=== PATIENT | male | born 1950 | race Asian ===

== ENCOUNTER → 2020-12-09 | Outpatient (CLI) | payer OTHER ==
[~2020-12-09] MED LIST: ATEN50TA PO; FURO20TA3 PO; NADO20TA2 PO
== END ==
LOC: LAB 09:16
PROVIDERS: ATTEND Specialist
DX: Z01.812 Encounter for preprocedural laboratory examination (principal); Z20.822 Contact with and (suspected) exposure to COVID-19
CPT/HCPCS: U0003

== ENCOUNTER → 2020-12-13 | Day surgery (SDC) | payer OTHER ==
[~2020-12-13] MED LIST changes: +LIDOCAINE 1%/EPI 1:100,000 20 ML VIAL. INJ ONE; +LIDOCAINE 1%/EPI 1:100,000 20 ML VIAL. ONE; +LIDOCAINE 2%/EPI 1:100,000 20 ML VIAL. INJ ONE
[2020-12-13 10:17] LABS: PROTHROMBIN TIME PATIENT 13.5 SEC (11.7-14.0)
[2020-12-13 10:22] VITALS: BP 134/64
--- NOTE | 2020-12-13 10:58 | PDOC ---
SURGICAL PROGRESS NOTE DATE: 12/13/20 TIME: 10:57 No change in dictated H&P Vital Signs Vital Signs Date Time Temp Pulse Resp B/P (MAP) Pulse Ox O2 Delivery O2 Flow Rate FiO2 12/13/20 10:22 52 20 97 Room Air 12/13/20 10:09 98.2 98.2 Labs Laboratory Tests Test 12/13/20 09:58 Prothrombin Time 13.5 SEC (11.7-14.0) Prothromb Time International Ratio 1.1 (0.8-1.1) Laboratory Tests Test 12/13/20 09:58 Prothrombin Time 13.5 SEC (11.7-14.0) Prothromb Time International Ratio 1.1 (0.8-1.1) Justicifation of Admission Dx: Justifications for Admission: Justification of Admission Dx: Yes OLGA ALFONSO MD Dec 13, 2020 10:58
--- NOTE | 2020-12-13 11:01 | PDOC ---
SURGICAL PROGRESS NOTE DATE: 12/13/20 TIME: 10:58 Op Note: Surgeon..............................................Curt Pre and post op note.............................tumor right scrotum Anesthesia...........................................1% lidocanie with epi Procedure............................................excision mass right scrotum Drains.................................................none Blood loss............................................3cc Fluids.................................................none Condition............................................Satisfactory Vital Signs Vital Signs Date Time Temp Pulse Resp B/P (MAP) Pulse Ox O2 Delivery O2 Flow Rate FiO2 12/13/20 10:22 52 20 97 Room Air 12/13/20 10:09 98.2 98.2 Labs Laboratory Tests Test 12/13/20 09:58 Prothrombin Time 13.5 SEC (11.7-14.0) Prothromb Time International Ratio 1.1 (0.8-1.1) Laboratory Tests Test 12/13/20 09:58 Prothrombin Time 13.5 SEC (11.7-14.0) Prothromb Time International Ratio 1.1 (0.8-1.1) Justicifation of Admission Dx: Justifications for Admission: Justification of Admission Dx: Yes OLGA ALFONSO MD Dec 13, 2020 11:01
--- NOTE | 2020-12-13 16:13 | PREOP HP ---
DATE OF SERVICE: 12/13/2020 HISTORY OF PRESENT ILLNESS: The history is not available as the patient cannot speak. He smiles and does not speak or understand Filipino well; however, it was noted through a note that we got that he does have a mass of the right scrotum. It is stated that he takes medicine for hypertension, but does not take anticoagulants or any other medicine. I do not know how long this mass has been there, but it has been at least a couple of months since the primary care contacted me about this. There is no other medical history. I do not know about family history or allergies or drug use. PHYSICAL EXAMINATION: HEAD, EYES, EARS, NOSE AND THROAT: Grossly normal. CHEST AND HEART: Unremarkable. ABDOMEN: Grossly normal. EXTREMITIES: Grossly normal. GENITOURINARY: Inspections of the testicles and penis are unremarkable except for about a 2-3 cm mass of the right testicle that appears to be attached to the skin. It is not in the scrotum, but is a subcutaneous lesion. IMPRESSION: 1. Hypertension. 2. Mass of the right scrotal sac. PLAN: We will contact his insurance company to make certain that the preauthorization is done and plan to remove this under local anesthesia. He understands this and wishes it to be removed, but we will have to get an straw hat brim raiser operator for further clarification. He does understand and certain of what he wants and what we plan to do. OLGA ALFONSO MD DR: JESSICA/elio JOB#: [id number] / [id number] [place]
--- NOTE | 2020-12-13 16:46 | OP ---
DATE OF SURGERY: 12/13/2020 SURGEON: Daniel Alfonso MD PREOPERATIVE DIAGNOSIS: Mass of the right scrotum. POSTOPERATIVE DIAGNOSIS: Mass of the right scrotum. ANESTHESIA: Local anesthesia. PROCEDURE: Excision of mass, right scrotum. TECHNIQUE: The patient was properly prepped and draped in routine fashion, keeping the penis and other items out of the way. We saw the mass, which was about 2-3 cm on the right scrotum. It was pedunculate and coming from the scrotum. As such, we made an incision at the base of this mass and after it had been anesthetized with 1% lidocaine and epinephrine and prepped with Betadine solution. We then sent this to the lab. It was cut. There was brisk bleeding, which was controlled with pressure and then 4-0 Vicryl was used to approximate the skin edges so that the wound was closed in that fashion. Sterile dressing was applied and the procedure was terminated. The blood loss was about 5 mL. Fluids given can be obtained from the anesthesia sheet. No drains were used and the condition of the patient was satisfactory as he has returned to the recovery room. DANIEL ALFONSO MD DR: JESSICA/elio JOB#: [id number] / [id number] [place]
--- NOTE | 2020-12-16 09:01 | PATHOLOGY ---
[facility] Accession Number: [id number] . 01 Material submitted: . scrotum - MASS SCROTUM . 01 Clinical history: . EXCISION MASS SCROTUM . 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 (JPM:[facility] 12/15/2020) [facility] 12/15/2020 1654 Local . 02 Comment: There is no evidence of malignancy. (JP:[facility] 12/15/2020) . 02 Electronically signed: . Bobby Rizzo MD, Pathologist NPI- [id number] . 01 Gross description: . The specimen is received in formalin, labeled "Leo Paulino, mass scrotum". Received is a tag-like segment of light richardson polypoid-appearing skin measuring 2.0 x 1.8 x 1.5 cm in greatest dimensions. The surgical margin is inked. The specimen is serially sectioned and entirely submitted in cassettes A1 through A4. . Also received within the specimen container is an ellipse of christopher-brown skin measuring 1.6 x 1.3 x 0.3 cm in greatest. The epidermal surface displays a previous possible biopsy site measuring 0.5 x 0.4 cm. The surgical margin is inked. The specimen is trisected and entirely submitted in cassette A5. ([facility]; 12/14/2020) QAC/QAC 12/14/2020 1129 Local . 02 Pathologist provided ICD-10: L91.8, L85.8, L08.9 . 02 CPT . 180146 Specimen Comment: A courtesy copy of this report has been sent to [phone] Specimen Comment: Report sent to Specimen Comment: A duplicate report has been generated due to demographic updates. Performed at: 01 [facility] [id number] [facility] [address], [place] [id number] MD Pipe Frias MD Phone: [phone] Performed at: [facility] [address] [place], [place] [id number] MD Bobby Rizzo MD Phone: [phone]
== END | disposition home or self-care (01) ==
LOC: SURG 09:39
PROVIDERS: ATTEND Specialist
DX: L91.8 Other hypertrophic disorders of the skin (principal); L85.8 Other specified epidermal thickening; L08.9 Local infection of the skin and subcutaneous tissue, unspecified; I11.0 Hypertensive heart disease with heart failure; I50.9 Heart failure, unspecified; Z79.899 Other long term (current) drug therapy; Z98.890 Other specified postprocedural states
CPT/HCPCS: 11423; 36415; 85610; 88304; J3490; 11426